=== PATIENT | male | born 1985 | race Caucasian/White ===

== ENCOUNTER → 2018-06-24 | Outpatient (CLI) | payer BC ==
--- NOTE | 2018-06-24 13:19 | Diagnostic Imaging Report ---
INDICATION: Right foot pain. FINDINGS: 3 views. FINDINGS: There are no fractures. Articulating surfaces are smooth. No dislocation. No periosteal reactive changes. IMPRESSION: Negative right foot. Report given to Sheila Sr APRN, at 1:18 p.m. 06/24/2018/deanna Dictated by: Dictated on workstation # [id number]
== END ==
LOC: RAD 11:58
PROVIDERS: ATTEND Nurse Practitioner Family
DX: M10.9 Gout, unspecified (principal); M79.671 Pain in right foot
CPT/HCPCS: 73630